=== PATIENT | female | born 1975 | race Caucasian/White ===

== ENCOUNTER 2024-10-31 13:34 | Emergency (ER) | payer OTHER ==
--- NOTE | 2024-10-31 14:05 | ED ---
General Adult HPI - General Source: patient Mode of arrival: ambulatory <Dane Lewis - Last Filed: 10/31/24 16:19> - General Source: patient, police, RN notes reviewed, old records reviewed - History of Present Illness -: days(s) Location: head Radiation: non-radiation Severity scale (1-10): 4 Quality: stabbing Consistency: constant Improves with: none Worsens with: none Associated Symptoms: denies other symptoms Treatments Prior to Arrival: none <Nain Clemons - Last Filed: 11/01/24 18:34> - General Chief complaint: Neuro Symptoms/Deficit Stated complaint: L sided facial numbness Time Seen by Provider: 10/31/24 13:56 - History of Present Illness Initial comments: Dictation was produced using [employer]) dictation software. please excuse any grammatical, word or spelling errors. Chief Complaint: 49-year-old female with no significant comorbidities presents with multiple hours of headache, left-sided numbness and vision changes History of Present Illness: Patient is a 49-year-old female with history of migraines. Earlier today she started to have some symptoms of paresthesias to the left arm left abdomen and left chest left arm and left face. States that it feels like tingling sensation. Denies numbness. Denies any weakness to the extremities. States that suddenly she started to have what she describes as floaters. Floaters only appear to be affecting her left eye. Shortly after she started to have a left-sided headache. Denies that the headache feels severe or thunderclap. Patient states that there is a history of aneurysms in the family The ROS documented in this emergency department record has been reviewed and confirmed by me. Those systems with pertinent positive or negative responses have been documented in the HPI. All other systems are other negative and/or noncontributory. (Dane Lewis) This is a 49-year-old female to ER for evaluation of headache (Nain Clemons) - Related Data Allergies Allergy/AdvReac Type Severity Reaction Status Date / Time No Known Allergies Allergy Verified 10/31/24 19:52 Review of Systems ROS Other: All systems not noted in ROS Statement are negative. <Dane Lewis - Last Filed: 10/31/24 16:19> ROS Other: All systems not noted in ROS Statement are negative. <Nain Clemons - Last Filed: 11/01/24 18:34> ROS Statement: Those systems with pertinent positive or pertinent negative responses have been documented in the HPI. Past Medical History Additional Past Medical History / Comment(s): Migraine History of Any Multi-Drug Resistant Organisms: None Reported Past Surgical History: Orthopedic Surgery Past Psychological History: No Psychological Hx Reported Smoking Status: Never smoker Past Alcohol Use History: None Reported Past Drug Use History: None Reported <Dane Lewis - Last Filed: 10/31/24 16:19> General Exam <Dane Lewis - Last Filed: 10/31/24 16:19> General appearance: alert, in no apparent distress Head exam: Present: atraumatic, normocephalic, normal inspection Eye exam: Present: normal appearance, PERRL, EOMI. Absent: scleral icterus, conjunctival injection, periorbital swelling ENT exam: Present: normal exam, mucous membranes moist Neck exam: Present: normal inspection. Absent: tenderness, meningismus, lymphadenopathy Respiratory exam: Present: normal lung sounds bilaterally. Absent: respiratory distress, wheezes, rales, rhonchi, stridor Cardiovascular Exam: Present: regular rate, normal rhythm, normal heart sounds. Absent: systolic murmur, diastolic murmur, rubs, gallop, clicks GI/Abdominal exam: Present: soft, normal bowel sounds. Absent: distended, tenderness, guarding, rebound, rigid Extremities exam: Present: normal inspection, full ROM, normal capillary refill. Absent: tenderness, pedal edema, joint swelling, calf tenderness Back exam: Present: normal inspection Neurological exam: Present: alert, oriented X3, CN II-XII intact Psychiatric exam: Present: normal affect, normal mood Skin exam: Present: warm, dry, intact, normal color. Absent: rash <Nain Clemons - Last Filed: 11/01/24 18:34> - General Exam Comments Initial Comments: PHYSICAL EXAM: General Impression: Alert and oriented x3, not in acute distress HEENT: Normocephalic atraumatic, extra-ocular movements intact, pupils equal and reactive to light bilaterally, mucous membranes moist. Cardiovascular: Heart regular rate and rhythm Chest: Able to complete full sentences, no retractions, no tachypnea Abdomen: abdomen soft, non-tender, non-distended, no organomegaly Musculoskeletal: Pulses present and equal in all extremities, no peripheral edema Motor: no focal deficits noted Neurological: CN II-XII grossly intact, no focal motor deficits noted. Reported diminished sensation to light touch of the left arm left abdomen, left flank, left thorax, left arm and left face Skin: Intact with no visualized rashes Psych: Normal affect and mood (Dane Lewis) Course <Nain Clemons - Last Filed: 11/01/24 18:34> Vital Signs 10/31/24 10/31/24 10/31/24 13:40 20:01 21:05 Temperature 97.6 F 98 F 97.9 F Pulse Rate 72 80 76 Respiratory 17 18 18 Rate Blood Pressure 119/81 121/81 137/75 O2 Sat by Pulse 99 96 96 Oximetry - Reevaluation(s) Reevaluation #1: Medical records reviewed (Nain Clemons) Reevaluation #2: Thank resolved (Nain Clemons) Reevaluation #3: patient informed of results and questions answered (Nain Clemons) Reevaluation #4: Differential Headache: Migraine, tension, cluster, carbon monoxide, central venous thrombosis, pension karma temporal arteritis, acute closure glaucoma, intercranial hemorrhage, mastoiditis, sinusitis, head injury, this is not meant to be an all-inclusive l ist. (Nain Clemons) Medical Decision Making - Lab Data Result diagrams: 10/31/24 14:06 <Dane Lewis - Last Filed: 10/31/24 16:19> - Lab Data Result diagrams: 10/31/24 14:06 10/31/24 14:06 - Radiology Data Radiology results: report reviewed (CT brain is negative for acute disease), image reviewed <Nain Clemons - Last Filed: 11/01/24 18:34> - Medical Decision Making Was pt. sent in by a medical professional or institution (, PA, ENGINEER PROCESS, urgent care, hospital, or half-way...) When possible be specific @ -No Did you speak to anyone other than the patient for history (EMS, parent, family, police, friend...)? What history was obtained from this source @ -No Did you review nursing and triage notes (agree or disagree)? Why? @ -I reviewed and agree with nursing and triage notes Were old charts reviewed (outside hosp., previous admission, EMS record, old EKG, old radiological studies, urgent care reports/EKG's, half-way records)? Report findings @ -No old charts were reviewed Differential Diagnosis (chest pain, altered mental status, abdominal pain women, abdominal pain men, vaginal bleeding, musculoskeletal, weakness, fever, dyspnea, syncope, headache, dizziness, GI bleed, back pain, seizure, CVA, palpatations, mental health)? @ -Differential Headache: Migraine, tension, cluster, carbon monoxide, central venous thrombosis, pension karma temporal arteritis, acute closure glaucoma, intercranial hemorrhage, mastoiditis, sinusitis, head injury, this is not meant to be an all-inclusive list. EKG interpreted by me (3pts min.). @ -None done X-rays interpreted by me (1pt min.). @ -None done CT interpreted by me (1pt min.). @ -CT brain shows no acute processes. U/S interpreted by me (1pt. min.). @ -None done What testing was considered but not performed or refused? (CT, X-rays, U/S, labs)? Why? @ -None What meds were considered but not given or refused? Why? @ -None Was smoking cessation discussed for >3mins.? @ -No Were there social determinants of health that impacted care today? How? (Homelessness, low income, unemployed, alcoholism, drug addiction, transportation, low edu. Level, literacy, decrease access to med. care, shelter, rehab)? @ -No Was there de-escalation of care discussed even if they declined (Discuss DNR or withdrawal of care, Hospice)? DNR status @ -No What co-morbidities impacted this encounter? (DM, HTN, Smoking, COPD, CAD, Cancer, CVA, ARF, Chemo, Hep., AIDS, mental health diagnosis, sleep apnea, morbid obesity)? @ -Migraine headache Was patient admitted / discharged? Hospital course, mention meds given and route, prescriptions, significant lab abnormalities, going to OR and other pertinent info. @ -49-year-old female presents with symptoms suspicious for complex migraine. Vital signs upon arrival are within acceptable limits. Patient reported's s ubjective diminished sensation to light touch of the whole left side of her body. Motor function is intact. Patient nondysarthric, non-ataxic and not aphasic. Does not have any risk factors for stroke. CT is unremarkable. Pending labs. Patient ordered for headache cocktail. Case signed out to Dr. Barker At 4:30 PM Did you discuss the management of the patient with other professionals (pro fessionals i.e. , PA, ENGINEER PROCESS, lab, RT, psych nurse, social science manager, steel molder, teacher, financial aids officer, rehabilitation case coordinator)? Give summary @ -No Was critical care preformed (if so, how long)? @ -No Undiagnosed new problem with uncertain prognosis? @ -No Drug Therapy requiring intensive monitoring for toxicity (Heparin, Nitro, Insulin, Cardizem)? @ -No Were any procedures done? @ -No Diagnosis/symptom? Acute, or Chronic, or Acute on Chronic? Uncomplicated (without systemic symptoms) or Complicated (systemic symptoms)? @ -Acute headache Side effects of treatment? @ -No Exacerbation, Progression, or Severe Exacerbation? @ -No Poses a threat to life or bodily function? How? (Chest pain, [place], [place], pneumonia, PE, COPD, DKA, ARF, appy, cholecystitis, CVA, Diverticulitis, Homicidal, Suicidal, threat to staff... and all critical care pts) @ -yes (Dane Lewis) - Lab Data Lab Results 10/31/24 10/31/24 Range/Units 14:06 14:06 WBC 9.6 (3.8-10.6) k/uL RBC 4.70 (3.80-5.40) m/uL Hgb 14.1 (11.4-16.0) gm/dL Hct 43.7 (34.0-46.0) % MCV 92.9 (80.0-100.0) fL MCH 30.0 (25.0-35.0) pg MCHC 32.3 (31.0-37.0) g/dL RDW 12.3 (11.5-15.5) % Plt Count 250 (150-450) k/uL MPV 7.4 Neutrophils % 48 % Lymphocytes % 42 % Monocytes % 5 % Eosinophils % 3 % Basophils % 1 % Neutrophils # 4.6 (1.3-7.7) k/uL Lymphocytes # 4.0 (1.0-4.8) k/uL Monocytes # 0.5 (0-1.0) k/uL Eosinophils # 0.3 (0-0.7) k/uL Basophils # 0.1 (0-0.2) k/uL Sodium 137 (137-145) mmol/L Potassium 4.4 (3.5-5.1) mmol/L Chloride 109 H (98-107) mmol/L Carbon Dioxide 18 L (22-30) mmol/L Anion Gap 10 mmol/L BUN 19 H (7-17) mg/dL Creatinine 0.77 (0.52-1.04) mg/dL Est GFR (CKD-EPI)AfAm >90 (>60 ml/min/1.73 sqM) Est GFR (CKD-EPI)NonAf >90 (>60 ml/min/1.73 sqM) Glucose 106 H (74-99) mg/dL Calcium 9.1 (8.4-10.2) mg/dL Disposition <Dane Lewis - Last Filed: 10/31/24 16:19> Is patient prescribed a controlled substance at d/c from ED?: No Time of Disposition: 20:00 <Nain Clemons - Last Filed: 11/01/24 18:34> Clinical Impression: Migraine Disposition: HOME SELF-CARE Condition: Good Instructions (If sedation given, give patient instructions): Migraine Headache (ED) Referrals: Cassie Lindsey MD [Primary Care Provider] - 1-2 days
[2024-10-31 15:47] LABS: Basophils # (A) 0.1 k/uL (0-0.2); Basophils % (A) 1 %; Eosinophils # (A) 0.3 k/uL (0-0.7); Eosinophils % (A) 3 %; HCT 43.7 % (34.0-46.0); HGB 14.1 gm/dL (11.4-16.0); Lymphocytes % (A) 42 %; MCHC 32.3 g/dL (31.0-37.0); MCV 92.9 fL (80.0-100.0); Mean Platelet Volume 7.4; Monocytes # (A) 0.5 k/uL (0-1.0); Monocytes % (A) 5 %; Neutrophils # (A) 4.6 k/uL (1.3-7.7); Neutrophils % (A) 48 %; Platelet Count 250 k/uL (150-450); RDW 12.3 % (11.5-15.5); WBC 9.6 k/uL (3.8-10.6)
--- NOTE | 2024-10-31 16:10 | CT ---
EXAMINATION TYPE: CT brain wo con DATE OF EXAM: 10/31/2024 COMPARISON: None CLINICAL INDICATION: Female, 49 years old with history of headache, vision changes, left sided parest hesias; PHH, Headache, left eye blurred vision x [address] DLP: 1094.4 mGycm Automated exposure control for dose reduction was used. Findings: The ventricles, basal cisterns and sulci over the convexities are within normal limits and there is n o mass effect or shift of midline structures. No abnormal density is seen throughout the brain parenchyma and there is no acute intra or extra-axia l hemorrhage. The posterior fossa including the brainstem, fourth ventricle and cerebellar pontine angles appear no rmal. Intraorbital contents appear normal and symmetric. Visualized paranasal sinuses and mastoid air cells are well aerated. The calvarium is intact. IMPRESSION: No significant abnormality seen. There is no acute bleed or mass effect. [facility], Workstation: [facility], 10/31/2024 4:07 PM
[2024-10-31 16:15] LABS: African American GFR (CKD) >90 (>60 ml/min/1.73 sqM); Anion Gap 10 mmol/L; Blood Urea Nitrogen 19 mg/dL (7-17); Calcium 9.1 mg/dL (8.4-10.2); Carbon Dioxide 18 mmol/L (22-30); Chloride 109 mmol/L (98-107); Glucose 106 mg/dL (74-99); Non-African American GFR(CKD) >90 (>60 ml/min/1.73 sqM); Sodium 137 mmol/L (137-145)
[2024-10-31 16:33] LABS: Potassium 4.4 mmol/L (3.5-5.1)
--- NOTE | 2024-10-31 19:38 | CT ---
EXAMINATION TYPE: CT angio head neck CT DLP: 653.8 mGycm, Automated exposure control for dose reduction was used. DATE OF EXAM: 10/31/2024 6:53 PM COMPARISON: CT head 10/31/2024. CLINICAL INDICATION:Female, 49 years old with history of cva,tia; PHH, headache TECHNIQUE: Axially acquired helical CT angiogram of the head and neck was obtained with contrast. Axi al images are supplemented with 3D reconstructions and MIP images which were post-processed at an in dependent workstation. NASCET criteria used. Contrast used:65ml mL of Isovue 370 with IV Contrast, Oral contrast used: None. FINDINGS: CTA HEAD: Please see noncontrasted head CT from the same day for further intracranial details. The visualized portions of the internal carotid arteries, middle cerebral arteries, anterior cerebral arteries, and posterior cerebral arteries are patent. The basilar and vertebral arteries are patent. CTA NECK: Right Carotid System: The common carotid artery and external carotid artery are patent. The carotid bifurcation demonstrate s no evidence of hemodynamically significant stenosis. The remaining portions of the internal carotid artery demonstrate normal size without significant narrowing. Left Carotid System: The common carotid artery and external carotid artery are patent. The carotid bifurcation demonstrate s no evidence of hemodynamically significant stenosis. The remaining portions of the internal carotid artery demonstrate normal size without significant narrowing. Vertebral arteries are patent without evidence hemodynamically significant stenosis. There is right v ertebral artery dominance. There is a three-vessel aortic arch. The origins of the great vessels are patent. No evidence of hemo dynamically significant stenosis. Upper thorax: IMPRESSION: 1. No evidence of dissection of the cervical internal carotid arteries or vertebral arteries or any e vidence of significant stenosis at the carotid bifurcations. 2. No evidence of intracranial high-grade stenosis or intracranial aneurysm. [facility], , 10/31/2024 7:36 PM
[2024-10-31] MEDS: ACETAMINOPHEN TAB 500 MG TAB PO STA (19:53)
[2024-10-31] MEDS: SODIUM CHLORIDE 0.9% 1,000 ML IV STA (19:54)
[2024-10-31 20:02] VITALS: RESP 18
[2024-10-31] MEDS: ONDANSETRON 4 MG/2 ML VIAL IVP STA (20:15)
[2024-10-31] MEDS: diphenhydrAMINE 50 MG/ML 1 ML VIAL IVP STA (20:17)
[2024-10-31] MEDS: HYDROmorphone 1 MG/ML 1 ML SYRINGE IVP STA (20:17)
[2024-10-31] MEDS: KETOROLAC 15 MG/ML 1 ML VIAL IVP STA (20:17)
[2024-10-31] MEDS: PROCHLORPERAZINE INJ 10 MG/2 ML VIAL IVP STA (20:31)
[2024-10-31 21:11] VITALS: BP 137/75; PULSE 76; TEMP 97.9
== END 2024-10-31 21:05 | disposition home or self-care (01) ==
LOC: EC 13:34
DX: G43.909 Migraine, unspecified, not intractable, without status migrainosus (principal)
CPT/HCPCS: 36415; 80048; 85025; 70496; 70450; 70498; 99284; 96374; 96375 ×2; 96361; J1200; J2405; J1171; Q9967